=== PATIENT | male | born 1970 | race Hispanic/Latino ===

== ENCOUNTER 2024-02-23 07:30 | Day surgery (SDC) | payer OTHER ==
[2024-02-19 11:58] LABS: Absolute Eosinophils 0.1 K/uL (0-0.5); Absolute Lymphocytes (CBC) 1.5 K/uL (0.7-4.9); Absolute Monocytes 0.6 K/uL (0.1-1.3); Absolute Neutrophil 4.2 K/uL (1.8-8.0); Basophils % 0.7 % (0-1.3); Eosinophils % 1.1 % (0-4.4); Hematocrit 40.3 % (39.6-49.0); Hemoglobin 12.8 g/dL (13.6-17.9); Lymphocytes % 23.7 % (15.3-44.8); MCH 26.4 pg (27.0-35.0); MCHC 31.8 g/dL (32.0-36.0); MCV 82.9 fL (80-100); MPV 8.7 fL (7.6-11.3); Monocytes % 9.9 % (3.3-12.3); Neutrophils % 64.6 % (41.7-73.7); Platelets 320 thou/uL (152-406); RBC Red Blood Cell Count 4.86 M/uL (4.33-5.43); Red Cell Distribution Width 16.2 % (12.1-15.2)
[2024-02-19 12:16] LABS: Anion Gap 5.8 mEq/L (5.0-15.0); Potassium 3.8 mEq/L (3.5-5.1)
[2024-02-23] MEDS ORDERED: EPINEPHRINE 1 MG/ML VIAL ONE ×2 (07:49→08:01)
[2024-02-23] MEDS ORDERED: LIDOCAINE 1% MPF 5 ML VIAL ONE (07:49)
[2024-02-23] MEDS ORDERED: dexAMETHasone 4 MG/ML VIAL ONE ×2 (07:50→08:01)
[2024-02-23] MEDS: Ringers Lactate 1,000 ML IV ONE (07:50)
[2024-02-23] MEDS ORDERED: BUPIVACAINE 0.5% PF 10 ML VIAL ONE (08:03)
[2024-02-23] MEDS ORDERED: FENTANYL CITR 100 MCG/2 ML ONE (08:08)
[2024-02-23] MEDS ORDERED: MIDAZOLAM HCL 2 MG/2 ML INJ ONE (08:08)
[2024-02-23] MEDS ORDERED: LIDOCAINE 2% MPF 5 ML VIAL ONE ×2 (08:54→09:38)
[2024-02-23] MEDS ORDERED: KETAMINE HCL IN 0.9 % NACL 50 MG/5 ML SYRINGE IV ONE (08:54)
[2024-02-23] MEDS ORDERED: propofoL 200 MG/20 ML VIAL IV ONE (08:54)
[2024-02-23] MEDS ORDERED: DEXMEDETOMIDINE HCL 200 MCG/2 ML VIAL ONE (09:03)
[2024-02-23] MEDS: CLINDAMYCIN 900MG/D5W 900 MG/50 ML IVPB IV ONE (09:50)
[2024-02-23] MEDS ORDERED: EPHEDRINE SULF 50 MG/ML VIAL ONE (09:59)
[2024-02-23] MEDS: MAGNESIUM SULFATE 1 gm IVPB 1 GM/100 ML BAG IV ONE (10:46)
--- NOTE | 2024-02-23 12:27 | EKG ---
Test Date: 2024-02-19 Test Time: 10:52:14 Audio/Visual Manager: MARQUEZ MEASUREMENT RESULTS: Intervals: Rate: 61 ME: 126 QRSD: 98 QT: 444 QTc: 446 [place]: P: 55 ME: 126 QRS: 77 T: 76 INTERPRETIVE STATEMENTS: Normal sinus rhythm Normal ECG No previous ECG available for comparison Electronically Signed On 02-23-24 12:19:47 GUARDIAN AD LITEM by Greg Elliott
[2024-02-23 12:50] VITALS: O2SAT 98
[2024-02-23] MEDS: HYDROCODONE/APAP 10/325 TAB ONE (13:20)
[2024-02-23 14:35] VITALS: BP 121/59; TEMP 97.3
--- NOTE | 2024-02-23 22:35 | OP ---
Date of Procedure: 02/23/2024 Surgeon: Cristian Herndon MD Preoperative Diagnoses: Left knee pain with instability, probable meniscal tear or tears as well as anterior cruciate ligament rupture, which is chronic. Some possible degree of arthritic change. 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 2.Displaceable radial as well as horizontal tears of the medial meniscus. 3.Anterior cruciate ligament deficient knee. Procedures: 1.Examination under anesthesia. 2.Arthroscopy with debridement of medial meniscal tear. 3.Debridement of small lateral meniscal tear. 4.Anterior cruciate ligament reconstruction using Achilles tendon allograft. Estimated Blood Loss: 30 cc. Complications: There were no complications. Indications For Operation: Mr. Weinberg is a 53-year-old male who is highly active and employed, who injured his knee quite sometime ago. He had an MRI done at that time, which demonstrated an ACL tear as well as medial meniscal tears. Because of his work schedule and the rehab associated with the AC L reconstruction as well as possible other procedures, patient decided to delay this until it was muc h better socially for him and has been having episodes of instability as well as continued knee pain and swelling. We discussed with him that we could simply deal with the meniscal tears and leave the ACL as although he would have an ACL deficient knee. He may be developing some arthritis. Also, men iscal work could be beneficial. He is thought about this extremely carefully and opts for ACL recons truction as well as medial meniscal debridement as well. He does know he has a slight degree of arth ritic change being 53, but wants to pursue ACL reconstruction. He has no limitations in range of mot ion. Risks, benefits, and alternatives of these procedures were discussed with him including specifi c ones related to the ACL as well as need for rehab. He says he understands everything as presented and wishes to proceed. Procedure In Detail: The patient was taken to the operating room, placed in the supine position. He had previously had a block done in the holding area. After this, a well-padded general anesthesia w as obtained, a well-padded tourniquet was placed on superior left leg. Knee was brought through full range of motion and examination under anesthesia does demonstrate a very soft Dilshad's as well as a pivot shift. He was then prepped and draped in usual sterile fashion and a standard superomedial ar throscopy portal was made as a draining portal. This liberated approximately 60 cc of rather normal- appearing synovial fluid. This is followed by placement of inferolateral arthroscopy portal. The kn ee was then sequentially examined including suprapatellar pouch, medial and lateral gutters, medial a nd lateral compartments as well as the notch and patellofemoral joint. Pertinent findings include: 1.A grade 2 chondromalacia of the patellofemoral joint. 2.Grade 2 chondromalacia of the medial femoral condyle. 3.Complex medial meniscal tear with a fairly large horizontal component and a quite large radial com ponent as well. The lateral meniscus was inspected. It may have some fraying of the anterior horn. The anterior cru ciate ligament itself was inspected and was found to be absent from its normal insertion and the beulah ining ACL is more or less curled up just past the tibial insertion. PCL appears fine. A standard me dial arthroscopy portal was then performed and a probe was used as well as hand instruments and shave r to debride back the medial meniscus to a firm hook stable well contoured base. He does still have some areas of definite fraying and maybe some horizontal tearing. Attempts were made to pull this in to the joint space as subtotal medial meniscectomy would need to be used to debride this back to the horizontal tear. It did not appear to pull significantly into the joint and all radial component has been debrided and appears to be hook stable throughout. After this, attention was then turned to th e medial meniscus, was examined in total using a probe and there was a small tear of the anterior hor n, which was mildly debrided using a shaver. After this, the tourniquet was raised and attention was turned to the fat pad, which was debrided to allow for good visualization. This was also followed b y a debridement within the notch with removal of the ACL stump with the exception of a small portion directly at its tibial insertion. The lateral notch is cleared of any soft tissues and the posterior wall was defined using a curette. Decision was made to pursue transtibial and a standard tibial kim joselyn was then placed using the Arthrex aimer and appears to exit appropriately at the ACL footprint. Following this, it was then reamed. The knee was then flexed as aiming guide was placed along the ba ck wall and the Beath pin was then placed into the lateral portion of the femoral condyle. It was th en overreamed to 30 mm. The bone plug measured approximately 25-27. The graft that was repaired, it was then fed into the Beath pin and the graft sutures were then fed through exiting the lateral femu r. It was then secured using a Fany and the bone plug was then placed through the tibial tunnel wi thout difficulty, brought up to the femoral tunnel, and directed into the femoral tunnel and buried t o the stent marked. Attention was held on both as notch was then used to notch it in the femur and t he size 8 tap was used followed by size 9 screw, which has extremely good bite. Attention was pulled on the tibial sutures as it was brought through range of motion. There does not appear to be any pr oblem with isometry. The tibial tunnel was then addressed and the Nitinol guide pin was placed. As screw was placed, it also has an excellent bite. Following this, the sutures were removed. The knee was brought through range of motion. Has a very solid Dilshad. The incision for the tibial guide w as then sewn using 2-0 Vicryl sutures followed by emmy. The remainder of the arthroscopy portals are stapled. The patient was placed in a well-padded sterile dressing, awakened, and taken to recove ry room in good condition. No complications. SE/MODL Voice ID: [id number] Report ID: [id number]
== END 2024-02-23 14:18 | disposition home or self-care (01) ==
LOC: OR 07:30
PROVIDERS: ATTEND Orthopaedic Surgery
PROC: 0SBD4ZZ Excision of Left Knee Joint, Percutaneous Endoscopic Approach (ICD-10-PCS; 2024-02-23)
PROC: 0SBD4ZZ Excision of Left Knee Joint, Percutaneous Endoscopic Approach (ICD-10-PCS; 2024-02-23)
PROC: 0MSP4ZZ Reposition Left Knee Bursa and Ligament, Percutaneous Endoscopic Approach (ICD-10-PCS; 2024-02-23)
PROC: 0SUD4KZ Supplement Left Knee Joint with Nonautologous Tissue Substitute, Percutaneous Endoscopic Approach (ICD-10-PCS; principal; 2024-02-23 09:30)
DX: S83.232A Complex tear of medial meniscus, current injury, left knee, initial encounter (principal); S83.512A Sprain of anterior cruciate ligament of left knee, initial encounter; S83.282D Other tear of lateral meniscus, current injury, left knee, subsequent encounter; M25.562 Pain in left knee; M94.29 Chondromalacia, multiple sites
CPT/HCPCS: 29867; 29888; 29880; 93005; 85025; 80048; 36415; J3475; J2704; J1100 ×2; J2003 ×3; J2250; J3010; J0171 ×2; J7120